=== PATIENT | female | born 1940 | race American Indian/Alaskan Native ===

== ENCOUNTER 2018-07-21 13:57 | Emergency (ER) | payer OTHER ==
[~2018-07-21] VITALS: Ht 152.4 cm; Wt 45.4 kg
[2018-07-21] MEDS ORDERED: VASOTEC5 MG PO (14:44)
[2018-07-21] MEDS ORDERED: ASA81 MG PO (14:45)
== END 2018-07-21 18:04 | disposition home or self-care (01) ==
LOC: ER 13:57 → EMR PED 13:59 → ER 13:59
DX: G56.01 Carpal tunnel syndrome, right upper limb (principal)

== ENCOUNTER 2018-09-26 11:47 | Emergency (ER) | payer OTHER ==
[~2018-09-26] VITALS: Ht 152.4 cm; Wt 47.6 kg
[~2018-09-26 11:47] MED LIST: ASA81 MG PO; VASOTEC5 MG PO
== END 2018-09-26 14:08 | disposition home or self-care (01) ==
LOC: ER 11:47
DX: S90.01XA Contusion of right ankle, initial encounter (principal); S90.31XA Contusion of right foot, initial encounter; M54.2 Cervicalgia; W18.09XA Striking against other object with subsequent fall, initial encounter; Y93.89 Activity, other specified; Y92.098 Other place in other non-institutional residence as the place of occurrence of the external cause; Y99.8 Other external cause status

== ENCOUNTER 2018-10-02 11:26 | Emergency (ER) | payer OTHER ==
[~2018-10-02] VITALS: Ht 152.4 cm; Wt 47.6 kg
== END 2018-10-02 15:37 | disposition home or self-care (01) ==
LOC: ER 11:26
DX: M54.2 Cervicalgia (principal)

== ENCOUNTER 2019-06-08 12:29 | Emergency (ER) | payer OTHER ==
[~2019-06-08] VITALS: Ht 152.4 cm; Wt 45.4 kg
== END 2019-06-08 14:09 | disposition home or self-care (01) ==
LOC: ER 12:29
DX: T78.49XA Other allergy, initial encounter (principal); R21 Rash and other nonspecific skin eruption; M62.838 Other muscle spasm

== ENCOUNTER → 2019-06-09 | Emergency (ER) | payer OTHER ==
[~2019-06-09] VITALS: Ht 152.4 cm; Wt 45.4 kg
== END | disposition left against medical advice (07) ==
LOC: ER 17:16
DX: Z53.20 Procedure and treatment not carried out because of patient's decision for unspecified reasons (principal)

== ENCOUNTER 2019-06-21 10:21 | Outpatient (CLI) | payer OTHER | END 2019-06-21 10:48 | disposition home or self-care (01) | LOC: NUCLEAR 10:21 | DX: M81.0 Age-related osteoporosis without current pathological fracture (principal); M54.5 Low back pain; E55.9 Vitamin D deficiency, unspecified; E78.89 Other lipoprotein metabolism disorders; E46 Unspecified protein-calorie malnutrition; R26.89 Other abnormalities of gait and mobility; K21.9 Gastro-esophageal reflux disease without esophagitis; M54.31 Sciatica, right side; I70.0 Atherosclerosis of aorta; Z68.20 Body mass index [BMI] 20.0-20.9, adult; Z13.5 Encounter for screening for eye and ear disorders; Z13.820 Encounter for screening for osteoporosis ==

== ENCOUNTER 2019-10-16 03:17 | Inpatient (IN) | payer OTHER ==
[~2019-10-16] VITALS: Ht 149.9 cm; Wt 49.9 kg
--- NOTE | 2019-10-16 03:27 | NUR ---
SE RECIBE PTE ALERTA Y ORIENTADA POR GIOVANNY QUIEN REFIERE PRESENTAR REACCION ALERGICA DESDE HACE LATRICE HORA. PTE PRESENTA DIFICULTAD PARA HABLAR Y TRAGAR.
--- NOTE | 2019-10-16 03:40 | NUR ---
SE RECIBE PTE FEMENIA DE 79 YRS ALERTA CONCIENTE TRANQUILA EN COMPANIA DE FAMILIAR. PTE ES EVALUADA POR LA DENEEN. RENTA POR REACION ALERGICA, ES EJECUTADO ORDEN Y SE LE CANALIZA ADMINSTRANDRO MEDICAMTOS IV . SE OBSERVA PTE POR CAMBIOS.
--- NOTE | 2019-10-16 04:40 | NUR ---
PT ALERTA Y ORIENTADA, NO RESPONDE A TX, REFIERE DIFICULTAD PARA RESPIRAR [place]. SE NOTIFICA A DRA BULL, QUIEN EVALUA A PTE Y ORDENA ADMINISTRAR 3RA EPINEFRINA SUBCUTANEA 0.3 ML Y IVF'S. SE ORIENTA A PTE Y SE ADMINISTRAN MEDICAMENTOS MELISSA PRESCRITOS. SE UBICA A PTE EN CHEST PAIN , SE CONECTA A MONITOR CARDIACO Y OXIMETRIA DE PULSO CONTINUA. SE LLAMA A TERAPIA RESPIRATORIA Y A DENEEN HERZOG DE ANESTESIA PARA INTUBACION PREVENTIVA. DENEEN ORIENTA A FAMILIARES, LOS CUALES REFIEREN ENTENDER.
--- NOTE | 2019-10-16 06:23 | NUR ---
0528: 8ML OF PROPOFOL AND 5MG OF VERSED IS ADMINISTERED IV. 0529: AMBU AIR IS APPLIED BY RESPIRATORY THERAPIST. 0531: ANESTIN IS ADMINISTERED IV 0532: PATIENT IS INTUBATED 0534: DR. ML AKINSULTATES PATIENT 0535: PATIENT IS PUT ON VENTILATOR 0600: BOWERS AT GRAVITY IS PLACED ON PATIENT WITH ASEPTIC MEASURES.
--- NOTE | 2019-10-16 07:42 | NUR ---
0650: PATIENT IS UNSTILL AND EXTUBATES HERSELF WHILE ROCKING BACK AND FORTH. 0652: VERSED IS DISCONTINUED. 0655: RESPIRATORY THERAPY AND ANESTISIA IS CALLED. 0720: PATIENT IS ENTUBATED AGAIN WITH 6.5 TUBE. 0725: VERSED IS CONTINUED.
[2019-10-16] MEDS ORDERED: VITAMIN D31250 MCG (16:14)
[2019-10-22] MEDS ORDERED: FAMOTIDINE20 MG PO (07:17)
[2019-10-22] MEDS ORDERED: ULTRACET PO (07:18)
[2019-10-22] MEDS ORDERED: NABUMETONE500 MG PO (07:19)
[2019-10-22] MEDS ORDERED: NORVASC5 MG PO (07:19)
== END 2019-10-22 09:56 | disposition home or self-care (01) | DRG 208 ==
LOC: ER 03:17 → ICU-2 07:55 → ICU 10-17 14:41 → MEDI 10-20 12:11
PROVIDERS: ADMIT Internal Medicine; ATTEND Internal Medicine
PROC: 0BH17EZ Insertion of Endotracheal Airway into Trachea, Via Natural or Artificial Opening (ICD-10-PCS; principal; 2019-10-16)
PROC: 4A033R1 Measurement of Arterial Saturation, Peripheral, Percutaneous Approach (ICD-10-PCS; 2019-10-16)
PROC: 5A1945Z Respiratory Ventilation, 24-96 Consecutive Hours (ICD-10-PCS; 2019-10-16)
PROC: 02HV33Z Insertion of Infusion Device into Superior Vena Cava, Percutaneous Approach (ICD-10-PCS; 2019-10-16)
PROC: 0DH67UZ Insertion of Feeding Device into Stomach, Via Natural or Artificial Opening (ICD-10-PCS; 2019-10-17)
PROC: 3E0G76Z Introduction of Nutritional Substance into Upper GI, Via Natural or Artificial Opening (ICD-10-PCS; 2019-10-17)
DX: J96.00 Acute respiratory failure, unspecified whether with hypoxia or hypercapnia (principal); T78.3XXA Angioneurotic edema, initial encounter; T46.4X5A Adverse effect of angiotensin-converting-enzyme inhibitors, initial encounter; I10 Essential (primary) hypertension; M81.8 Other osteoporosis without current pathological fracture; Y92.89 Other specified places as the place of occurrence of the external cause

== ENCOUNTER 2019-12-27 12:14 | Outpatient (CLI) | payer OTHER ==
[~2019-12-27 12:14] MED LIST changes: +FAMOTIDINE20 MG PO; +NABUMETONE500 MG PO; +NORVASC5 MG PO; +ULTRACET PO; +VITAMIN D31250 MCG
== END 2019-12-27 12:21 | disposition home or self-care (01) ==
LOC: MAMO-SONO 12:14
PROVIDERS: ATTEND Internal Medicine
DX: Z12.31 Encounter for screening mammogram for malignant neoplasm of breast (principal); R26.89 Other abnormalities of gait and mobility; K21.9 Gastro-esophageal reflux disease without esophagitis; M54.31 Sciatica, right side; M54.5 Low back pain; E55.9 Vitamin D deficiency, unspecified; E78.89 Other lipoprotein metabolism disorders; E46 Unspecified protein-calorie malnutrition; I70.0 Atherosclerosis of aorta; H10.45 Other chronic allergic conjunctivitis; Z68.20 Body mass index [BMI] 20.0-20.9, adult; M81.0 Age-related osteoporosis without current pathological fracture; Z13.5 Encounter for screening for eye and ear disorders

== ENCOUNTER → 2020-11-13 | Emergency (ER) | payer OTHER ==
[~2020-11-13] VITALS: Ht 152.4 cm; Wt 49.9 kg
[~2020-11-13] MED LIST changes: +DICLOFENAC SODI75 MG PO; +NORFLEX100MG PO
== END | disposition home or self-care (01) ==
LOC: ER 16:01
DX: M54.5 Low back pain (principal)

== ENCOUNTER 2021-05-23 15:32 | Emergency (ER) | payer OTHER ==
[~2021-05-23] VITALS: Ht 149.9 cm; Wt 49.9 kg
== END 2021-05-23 22:08 | disposition home or self-care (01) ==
LOC: ER 15:32
DX: B34.9 Viral infection, unspecified (principal); Z11.52 Encounter for screening for COVID-19

== ENCOUNTER 2021-06-09 08:00 | Outpatient (CLI) | payer OTHER | END 2021-06-09 08:30 | disposition home or self-care (01) | LOC: PPH VACUNA 08:00 | PROVIDERS: ATTEND Emergency Medicine Pediatric Emergency Medicine | DX: Z23 Encounter for immunization (principal) ==

== ENCOUNTER 2021-11-13 14:27 | Emergency (ER) | payer OTHER ==
[~2021-11-13] VITALS: Ht 149.9 cm; Wt 49.9 kg
== END 2021-11-13 21:05 | disposition home or self-care (01) ==
LOC: ER 14:27
DX: M25.532 Pain in left wrist (principal); M19.032 Primary osteoarthritis, left wrist; Z88.1 Allergy status to other antibiotic agents

== ENCOUNTER 2022-04-29 10:20 | Outpatient (CLI) | payer OTHER | END 2022-04-29 10:21 | disposition home or self-care (01) | LOC: NUCLEAR 10:20 | PROVIDERS: ATTEND Internal Medicine | DX: M81.0 Age-related osteoporosis without current pathological fracture (principal) ==

== ENCOUNTER 2022-07-08 14:29 | Emergency (ER) | payer OTHER ==
[~2022-07-08] VITALS: Ht 154.9 cm; Wt 45.4 kg
[2022-07-08] MEDS ORDERED: NORFLEX100MG PO (16:31)
[2022-07-08] MEDS ORDERED: DICLOFENAC SODI75 MG PO (16:31)
== END 2022-07-08 16:46 | disposition home or self-care (01) ==
LOC: ER 14:29
DX: M62.838 Other muscle spasm (principal); Z88.2 Allergy status to sulfonamides; Z88.8 Allergy status to other drugs, medicaments and biological substances

== ENCOUNTER 2022-08-17 15:03 | Emergency (ER) | payer OTHER ==
[~2022-08-17] VITALS: Ht 149.9 cm; Wt 47.6 kg
[2022-08-17] MEDS ORDERED: SINGULAIR10 MG PO (15:39)
== END 2022-08-17 19:05 | disposition home or self-care (01) ==
LOC: ER 15:03
DX: J32.9 Chronic sinusitis, unspecified (principal); Z88.2 Allergy status to sulfonamides; Z88.8 Allergy status to other drugs, medicaments and biological substances; Z20.822 Contact with and (suspected) exposure to COVID-19

== ENCOUNTER 2022-09-09 10:51 | Outpatient (CLI) | payer OTHER ==
[~2022-09-09 10:51] MED LIST changes: +SINGULAIR10 MG PO
== END 2022-09-09 10:56 | disposition home or self-care (01) ==
LOC: MAMO-SONO 10:51
PROVIDERS: ATTEND Emergency Medicine Pediatric Emergency Medicine
DX: Z12.31 Encounter for screening mammogram for malignant neoplasm of breast (principal); M81.0 Age-related osteoporosis without current pathological fracture; E03.9 Hypothyroidism, unspecified; T78.40XS Allergy, unspecified, sequela; J06.9 Acute upper respiratory infection, unspecified; R05.8 Other specified cough; H10.45 Other chronic allergic conjunctivitis; I70.0 Atherosclerosis of aorta

== ENCOUNTER 2023-05-17 17:16 | Emergency (ER) | payer OTHER ==
[~2023-05-17] VITALS: Ht 154.9 cm; Wt 47.6 kg
[2023-05-17] MEDS ORDERED: DICLOFENAC SODI50 MG PO (18:43)
[2023-05-17] MEDS ORDERED: NORFLEX100MG PO (18:43)
== END 2023-05-17 18:58 | disposition home or self-care (01) ==
LOC: ER 17:16
DX: M54.9 Dorsalgia, unspecified (principal); I10 Essential (primary) hypertension; Z88.1 Allergy status to other antibiotic agents; Z88.8 Allergy status to other drugs, medicaments and biological substances
CPT/HCPCS: 96372; 99282; J1885; J2360